=== PATIENT | male | born 1965 | race Hispanic/Latino ===

== ENCOUNTER 2025-06-19 23:01 | Emergency (ER) | payer MEDICARE ==
[~2025-06-19] VITALS: Ht 172.7 cm; Wt 89.1 kg
[2025-06-19 23:41] LABS: IMMATURE GRANULOCYTE ABSOLUTE 0.05 K/uL (0-1); NUCLEATED RED BLOOD CELLS 0.0 % (0.0-0.19); PLATELET COUNT (AUTO) 463 K/uL (130-400); RED BLOOD CELL COUNT(AUTO) 4.50 MIL/uL (4.50-6.20); RED CELL DISTRIBUTION WIDTH 14.2 % (11.0-15.5); WHITE BLOOD COUNT (AUTO) 11.3 K/uL (4.8-10.8)
[2025-06-19 23:51] LABS: CREATININE 1.1 mg/dL (0.5-1.3); GLOMERULAR FILTR. RATE CALC 78.0 mL/min (>90); GLUCOSE,RANDOM 126.0 mg/dL (70-105); SODIUM SERUM 131.0 mmol/L (136-145); UREA NITROGEN, BLOOD 17.0 mg/dL (7-18)
[2025-06-19 23:56] LABS: CREATINE KINASE, TOTAL 257.0 U/L (21-232)
--- NOTE | 2025-06-20 00:20 | HMCIMG ---
EXAM: CR Left Tibia and Fibula, 4 views. CLINICAL HISTORY: Pain. COMPARISON: None provided. FINDINGS: No acute fracture or aggressive appearing osseous lesion. Tiny plantar and posterior calcaneal enthesophyte. Joint spaces are within normal limits. The soft tissues are unremarkable. IMPRESSION: No acute bony abnormality is evident. /[place]
[2025-06-20 00:32] VITALS: BP 128/92; PULSE 102; RESP 16; TEMP 97.6; O2SAT 98
[2025-06-20] MEDS: HYDROcodone/APAP 5/325 1 TAB TABLET PO ONE (00:38)
--- NOTE | 2025-06-20 00:56 | HMCIMG ---
EXAM: US for Deep Venous Thrombosis, left Lower Extremity. CLINICAL HISTORY: Leg Pain and Swelling TECHNIQUE: Real-time ultrasound scan of the veins of the left lower extremity with color Doppler flow, spectral waveform analysis, and compression. COMPARISON: None provided. FINDINGS: DEEP VEINS: The common femoral, superficial femoral, and popliteal veins are echolucent and compressible. There is normal color Doppler flow throughout. The visualized calf veins appear patent. SOFT TISSUES: No popliteal fossa cyst or other abnormalities. IMPRESSION: No deep venous thrombosis is evident on left lower extremity examination. /[place]
--- NOTE | 2025-06-20 01:18 | ERN ---
ED Note History of Present Illness Stated Complaint: LEFT CALF PAIN Chief Complaint: Lower Extremity Pain/Injury Time Seen by MD: 23:05 Time Seen by Midlevel: 23:05 Dictation: The patient is a 59-year-old male with a history of depression, diabetes, hy pothyroidism hyperlipidemia, migraines who presents to the emergency department with complaints of nontraumatic left calf pain. Patient reports wrapping like pain. Reports that the last time he had this type of pain his sodium was low. Patient denies any recent travel, denies any recent surgeries or immobilization. Denies any chest pain or shortness of breath. Denies any fevers Allergies: Coded Allergies: [id number] Reductase Inhibitor (Unverified Allergy, Unknown, 06/19/25) bupropion (Unverified Allergy, Unknown, 06/19/25) celecoxib (Unverified Allergy, Unknown, 06/19/25) fluoxetine (Unverified Allergy, Unknown, 06/19/25) gabapentin (Unverified Allergy, Unknown, 06/19/25) lamotrigine (Unverified Allergy, Unknown, 06/19/25) pregabalin (Unverified Allergy, Unknown, 06/19/25) sertraline (Unverified Allergy, Unknown, 06/19/25) valproic acid (Unverified Allergy, Unknown, 06/19/25) ziprasidone (Unverified Allergy, Unknown, 06/19/25) Past Medical History Past Medical History: Anxiety, Bipolar, Dementia, Depression, Diabetes-Type II, High Cholesterol, Hypertension, Hypothyroid, Migraines Additional Past Medical Hx: CHRONIC BACK PAIN, ENLARGED PROSTATE Surgical History: Other Surgical History Other: ESOPHAGEAL SURGERY, HIATAL HERNIA, RN Note Reviewed/Agreed w/PFSH: Yes Review of System Dictation Constitutional: Negative for fever,chills, and weight loss Eyes: Negative for injury, pain,redness, and discharge ENT: Negative for injury,pain or swelling Cardiovascular: Negative for chest pain, palpitations, and edema Respiratory: Negative for shortness of breath, cough, and wheezing, Abdomen/GI: Negative for abdominal pain, nausea, vomiting, diarrhea, and constipation Back: Negative for injury and pain : Negative for injury, bleeding and discharge MS/Extremity: Positive for left lower leg pain Skin: Negative for rash, and discoloration Neuro: Negative for headache, weakness, numbness, tingling, and seizure Psych: Negative for suicide ideation, homicidal ideation, and hallucinations Initial Vital Sign VS Vital Signs Date Time Temp Pulse Resp B/P (MAP) Pulse Ox O2 Delivery O2 Flow Rate FiO2 06/19/25 23:04 97.3 104 16 126/91 99 Room Air 0 06/20/25 00:32 21 Physical Exam Dictation Vital Signs reviewed General Appearance: Alert, oriented x 3, no acute distress, well developed, nourished. Head and Face: non-traumatic. Eyes: PERRL, pink conjunctivas, eyelid no trauma, anterior chamber with arcus senilis. Ears: Pinnas intact and no signs of trauma or erythema ear canals clear and no discharge TM no erythema Nose: No discharge, no bleeding. Oropharynx: Mouth normal, tongue pink. pharynx clear,no erythema, tonsils no exudates, no abscesses noted, mucous membrane moist Neck: Supple, non-tender, no thyromegaly, no masses, no JVD, no bruits Breast:Deferred Chest:No tenderness, no crepitus, no paradoxical movement, no retractions Lungs:Clear, well-ventilated, symmetric, no rales, no wheezing, no rhonchi, no stridor, good breath sounds bilaterally Heart: Regular rate, regular rhythm, no murmur, no gallops Vascular: no peripheral edema, dorsalis pedis 3+ bilaterally Abdomen: Soft, positive bowel sounds, nondistended, no guarding, nontender, no rebound, no masses no hepatomegaly, no splenomegaly, no Dejesus's sign, no hernias. Rectal: Deferred Genital: Deferred Neurological: Normal speech, motor function intact, sensory function intact Musculoskeletal: Neck nontender, full range of motion, back nontender, full range of motion, Extremities: nontender, full range of motion Skin: Color pink, dry, no turgor, no rash, no lacerations, no abrasions, no contusions. Lymphatic: Deferred Results (Laboratory/Radiology) Laboratory/Radiology Laboratory Tests Test 06/19/25 23:33 White Blood Count 11.3 K/uL (4.8-10.8) H Red Blood Count 4.50 MIL/uL (4.50-6.20) Hemoglobin 13.8 g/dL (14.0-18.0) L Hematocrit 40.3 % (42-54) L Mean Corpuscular Volume 89.6 fL (79-99) Mean Corpuscular Hemoglobin 30.7 pg (27.0-33.0) Mean Corpuscular Hemoglobin Concent 34.2 g/dL (32.0-36.0) Red Cell Distribution Width 14.2 % (11.0-15.5) Platelet Count 463 K/uL (130-400) H Mean Platelet Volume 9.2 fL (7.5-10.5) Immature Granulocyte % (Auto) 0.4 % (0-1) Neutrophils (%) (Auto) 55.9 % (40.0-77.0) Lymphocytes (%) (Auto) 34.8 % (21.0-51.0) Monocytes (%) (Auto) 6.7 % (3.0-13.0) Eosinophils (%) (Auto) 1.6 % (0.0-8.0) Basophils (%) (Auto) 0.6 % (0.0-5.0) Neutrophils # (Auto) 6.3 K/uL (1.8-7.7) Lymphocytes # (Auto) 4.0 K/uL (1.0-4.8) Monocytes # (Auto) 0.8 K/uL (0.1-1.0) Eosinophils # (Auto) 0.18 K/uL (0.00-0.70) Basophils # (Auto) 0.07 K/uL (0.00-0.20) Absolute Immature Granulocyte (auto 0.05 K/uL (0-1) Nucleated Red Blood Cells 0.0 % (0.0-0.19) Sodium Level 131 mmol/L (136-145) L Potassium Level 4.3 mmol/L (3.5-5.1) Chloride Level 95 mmol/L (101-111) L Carbon Dioxide Level 30 mmol/L (21-32) Blood Urea Nitrogen 17 mg/dL (7-18) Creatinine 1.1 mg/dL (0.5-1.3) Glomerular Filtration Rate Calc 78 mL/min (>90) Random Glucose 126 mg/dL (70-105) H Total Calcium 10.2 mg/dL (8.5-10.1) H Total Creatine Kinase 257 U/L (21-232) H REASON: pain ORDERING PHYSICIAN: AMANDA COSTELLO BROOCH [employer] PROCEDURE: TIBFIB LT - TIBIA/FIBULA 2VWS LT EXAM: CR Left Tibia and Fibula, 4 views. CLINICAL HISTORY: Pain. COMPARISON: None provided. FINDINGS: No acute fracture or aggressive appearing osseous lesion. Tiny plantar and posterior calcaneal enthesophyte. Joint spaces are within normal limits. The soft tissues are unremarkable. IMPRESSION: No acute bony abnormality is evident. /[place] REASON: left lower leg ORDERING PHYSICIAN: AMANDA COSTELLO BROOCH [employer] PROCEDURE: VENOUS UNI - US VENOUS DOPPLER UNILATERAL EXAM: US for Deep Venous Thrombosis, left Lower Extremity. CLINICAL HISTORY: Leg Pain and Swelling TECHNIQUE: Real-time ultrasound scan of the veins of the left lower extremity with color Doppler flow, spectral waveform analysis, and compression. COMPARISON: None provided. FINDINGS: DEEP VEINS: The common femoral, superficial femoral, and popliteal veins are echolucent and compressible. There is normal color Doppler flow throughout. The visualized calf veins appear patent. SOFT TISSUES: No popliteal fossa cyst or other abnormalities. IMPRESSION: No deep venous thrombosis is evident on left lower extremity examination. /[place] Labs Reviewed?: Yes ED Course ED Course Orders Procedure Category Date Status Time Cbc With Differential LAB 06/19/25 Complete 23:26 Creatine Kinase, Total LAB 06/19/25 Complete 23:26 Basic Metabolic Panel LAB 06/19/25 Complete 23:26 Us Venous Doppler US 06/19/25 Resulted Unilateral 23:26 Tibia/Fibula 2vws Lt RAD 06/19/25 Resulted 23:26 Hydrocodone/Apap PHA 06/20/25 Complete 5/325 ([place] 5/325mg) 00:30 Current Medications Medications (Trade) Dose Ordered Sig/Sergio Route PRN Reason Start Time Stop Time Status Last Admin Dose Admin Acetaminophen/ Hydrocodone Bitart (NORco 5/325MG) 1 tab ONCE ONCE PO 06/20/25 00:30 06/20/25 00:31 DC 06/20/25 00:38 Vital Signs Date Time Temp Pulse Resp B/P (MAP) Pulse Ox O2 Delivery O2 Flow Rate FiO2 06/20/25 00:32 97.5 102 16 128/92 98 Room Air* 0 21 06/19/25 23:04 97.3 104 16 126/91 99 Room Air 0 Medical Decision Making MDM The patient is a 59-year-old male with a history of depression, diabetes, hypothyroidism hyperlipidemia, migraines who presents to the emergency department with complaints of nontraumatic left calf pain. Patient reports wrapping like pain. Reports that the last time he had this type of pain his sodium was low. Patient denies any recent travel, denies any recent surgeries or immobilization. Denies any chest pain or shortness of breath. Denies any fevers CBC showed mild leukocytosis, normocytic anemia, chemistry showed mild hyponatremia, mild hypochloremia, normal renal function, CK level of 257, venous Doppler showed no evidence of DVT. X-ray showed no acute fractures or dislocations. On physical exam patient is in no acute distress, nontoxic appearance, labs and imaging discussed with the patient and patient's family member who agreed to be discharged and follow up with PCP. Differential diagnosis: DVT, tib-fib fracture, rhabdomyolysis, electrolyte imbalance Need for hospitalization: Patient does not meet criteria for hospitalization. There are no social concerns with this patient. DX & DISP Disposition: Discharge Departure Impression: Primary Impression: Pain of left calf Condition: Stable Additional Instructions: Your labs were unremarkable. Your x-ray did not show any fractures or dislocations. Your ultrasound did not show any evidence of clots. Please follow up with your primary doctor in 1-2 days. If anything worsens please return to ER. FOLLOW-UP WITH PRIMARY CARE PROVIDER IN 1 TO 2 DAYS. TAKE MEDICATIONS DIRECTED HERE IN THE EMERGENCY ROOM. OKAY TO CONTINUE HOME MEDICATIONS UNLESS OTHERWISE DISCUSSED DURING YOUR VISIT IN THE EMERGENCY ROOM TODAY. RETURN TO YOUR NEAREST EMERGENCY ROOM IF SYMPTOMS WORSEN OR IF THERE IS NO IMPROVEMENT. CALL 911 IF YOU NEED IMMEDIATE ASSISTANCE. TAKE TYLENOL [id number] NEEDED AND IF NO CONTRAINDICATIONS ARE PRESENT. INCREASE ORAL HYDRATION. A WOUND CULTURE OR URINE CULTURE WAS ORDERED HERE IN THE EMERGENCY ROOM DEPARTMENT PLEASE FOLLOW-UP WITH PRIMARY CARE PROVIDER AND ADVISE THEM TO GET REPEAT PORTS FROM OUR FACILITY. IF YOU HAD ANY EVANS WRAP/SPLINTS THAT WERE APPLIED HERE, PLEASE DO NOT REMOVE THEM UNTIL YOU SEE YOUR PRIMARY CARE OR SPECIALTY. Referrals: BASSAM HERRERA MD (PCP) Time of Disposition: 01:17 I have reviewed the case, and I agree with, Diagnosis and Plan AMANDA COSTELLO BROOCH [employer] Jun 20, 2025 01:18
== END 2025-06-20 01:27 | disposition home or self-care (01) ==
LOC: EDH 23:01
DX: M79.662 Pain in left lower leg (principal); F41.9 Anxiety disorder, unspecified; F31.9 Bipolar disorder, unspecified; F03.93 Unspecified dementia, unspecified severity, with mood disturbance; E11.9 Type 2 diabetes mellitus without complications; E03.9 Hypothyroidism, unspecified; E78.00 Pure hypercholesterolemia, unspecified; I10 Essential (primary) hypertension; Z88.8 Allergy status to other drugs, medicaments and biological substances
CPT/HCPCS: 36415; 73590; 80048; 82550; 85025; 93971; 99284